=== PATIENT | male | born 1985 | race Caucasian/White ===

== ENCOUNTER 2022-11-11 21:30 | Emergency (ER) | payer OTHER ==
[2022-11-11] MEDS ORDERED: Sodium Chloride 0.9% 10 ML Syringe FLUSH PRN (21:59)
[2022-11-11] MEDS ORDERED: diphenhydrAMINE 50 MG/ML SDV IVPUSH ONE (22:00)
[2022-11-11] MEDS ORDERED: Ketorolac 30 MG/ML SDV IVPUSH ONE (22:00)
[2022-11-11] MEDS ORDERED: Metoclopramide 10 MG/2 ML SDV IVPUSH ONE (22:00)
[2022-11-11] MEDS ORDERED: Iopamidol 755 MG/ML 50 ML Bottle IVPUSH ONE (22:28)
[2022-11-11] MEDS ORDERED: Sodium Chloride 0.9% 10 ML Syringe FLUSH ONE (22:28)
[2022-11-11] MEDS ORDERED: Sodium Chloride 0.9% 100 ML IV SCH (22:30)
== END 2022-11-11 23:46 | disposition home or self-care (01) ==
LOC: JD.ED 21:30
DX: G43.909 Migraine, unspecified, not intractable, without status migrainosus (principal); Z88.2 Allergy status to sulfonamides; Z86.16 Personal history of COVID-19
CPT/HCPCS: 70450; 70496; 70498; 96374; 96375; 99284; J1200; J1885; J2765; J3490; Q9967